=== PATIENT | female | born 1955 | race Caucasian/White ===

== ENCOUNTER 2019-02-15 14:36 | Inpatient (IN) | payer OTHER ==
[~2019-02-15] VITALS: Ht 152.4 cm; Wt 78.5 kg
--- NOTE | 2019-02-15 02:05 | NUR ---
Vitals taken, no distress noted. Addendum: 02/16/19 at 0223 by Wilberto Blount RN Wrong time; correct time is 200402/15/2019.
[2019-02-15 14:37] VITALS: BP 189/97
--- NOTE | 2019-02-15 14:37 | NUR ---
PT BIBA FOR HYPERGLYCEMIA AND HYPERTENSION. PER EMS PT WAS AT PCP FOR VISIT DUE TO ABD PAIN/LT FLANK PAIN X2 DAYS. BS 517 AND BP 201/128. BS UPON ARRIVAL WAS 523. PT REPORTS DRY MOUTH AND FREQUENT URINATION. PT AAOX4, COOPERATIVE. VSS. ER MD TO SEE PT. MEDHX:CVA, HTN, DM, HLD
[2019-02-15] MEDS ORDERED: NACL 0.9% 500 ML IV SCH (14:51)
[2019-02-15] MEDS ORDERED: hydrALAZINE 20 MG/ML VIAL IVP ONE (14:55)
--- NOTE | 2019-02-15 14:58 | NUR ---
EKG PERFORMED AT BEDSIDE
[2019-02-15] MEDS ORDERED: CETI-32 PO (15:00)
[2019-02-15] MEDS ORDERED: AMLO10TA PO (15:00)
[2019-02-15] MEDS ORDERED: ASPI-1205 PO (15:00)
[2019-02-15] MEDS ORDERED: METO25TA PO (15:00)
[2019-02-15] MEDS ORDERED: LOSA100T51 PO (15:00)
[2019-02-15] MEDS ORDERED: BACL10TA4 PO (15:00)
[2019-02-15] MEDS ORDERED: FLONAS NS ×2 (15:00)
[2019-02-15] MEDS ORDERED: METF500T PO (15:00)
[2019-02-15] MEDS ORDERED: MECL-272 PO (15:00)
[2019-02-15] MEDS ORDERED: GUAI-791 PO (15:00)
[2019-02-15] MEDS ORDERED: FLUO10CA21 PO (15:00)
[2019-02-15] MEDS ORDERED: HYDR-5092 PO (15:00)
[2019-02-15] MEDS ORDERED: OMEP20TC10 PO (15:00)
[2019-02-15] MEDS ORDERED: GABA300C PO (15:00)
[2019-02-15] MEDS ORDERED: GEMF600T5 PO (15:00)
[2019-02-15 15:16] LABS: BASOPHILS % (AUTO) 0.7 % (0.0-2.0); EOSINOPHILS # (AUTO) 0.3 K/uL (0-0.4); EOSINOPHILS % (AUTO) 4.4 % (0.0-4.0); HEMATOCRIT 35.5 % (36-48); HEMOGLOBIN 11.6 g/dL (12.0-16.0); LYMPHOCYTES # (AUTO) 1.2 K/uL (2.5-16.5); LYMPHOCYTES % (AUTO) 16.8 % (20.5-51.1); MEAN CORPUSCULAR HEMOGLOBIN 26 pg (27-31); MEAN CORPUSCULAR HGB CONC 33 g/dL (33-37); MEAN CORPUSCULAR VOLUME 79.3 fL (80-94); MONOCYTES # (AUTO) 0.3 K/uL (0.8-1.0); MONOCYTES % (AUTO) 4.6 % (1.7-9.3); NEUTROPHILS # (AUTO) 5.2 K/uL (1.8-7.7); NEUTROPHILS % (AUTO) 73.5 % (42.2-75.2); PLATELET COUNT (AUTO) 193 K/uL (140-450); RED BLOOD CELL COUNT(AUTO) 4.47 MIL/uL (4.20-5.40); RED CELL DISTRIBUTION WIDTH 15.1 % (11.6-13.7); WHITE BLOOD COUNT (AUTO) 7.1 K/uL (4.8-10.8)
[2019-02-15] MEDS ORDERED: KETOROLAC 30 MG/ML VIAL IVP ONE (15:20)
[2019-02-15] MEDS ORDERED: ONDANSETRON 4 MG/2 ML VIAL IVP ONE (15:20)
--- NOTE | 2019-02-15 15:20 | NUR ---
resource technician at bedside.
[2019-02-15 15:31] LABS: PROTHROMBIN TIME 9.5 secs (10.8-13.4)
[2019-02-15 15:53] LABS: APPEARANCE,URINE CLEAR (CLEAR); BILIRUBIN,URINE NEGATIVE (NEGATIVE); BLOOD, URINE NEGATIVE (NEGATIVE); COLOR,URINE YELLOW (YELLOW); LEUKOCYTE ESTERASE ,URINE NEGATIVE (NEGATIVE); NITRITE, URINE NEGATIVE (NEGATIVE); UGLUCOSE 3+ (NEGATIVE)
[2019-02-15 16:00] LABS: ALBUMIN 3.3 g/dL (3.4-5.0); ANION GAP 20.4 (8-16); CARBON DIOXIDE 16.8 mmol/L (21-32); CREATININE 1.5 mg/dL (0.6-1.3); POTASSIUM 4.2 mmol/L (3.5-5.1); TOTAL BILIRUBIN 0.4 mg/dL (0.0-1.0)
[2019-02-15] MEDS ORDERED: NACL 0.9% 1,000 ML IV ONE (16:05)
--- NOTE | 2019-02-15 16:32 | NUR ---
PT RESTING IN BED, SISTER IS AT BEDSIDE. PT REPORTS THAT SHE IS "FEELING BETTER", BP IS CURRENTLY 145/67. PT STATES SHE FEELS WARM, CURRENT TEMP 98.3 ORAL. PT STILL HAS DRY MOUTH, AND FREQUENT URINATION, PT PROVIDED WITH BEDPAN AT THIS TIME. PT TOLERTED NS BOLUS, LUNG SOUNDS CLEAR, NO EDEMA PRESENT.
[2019-02-15] MEDS ORDERED: INSULIN REGULAR, HUMAN 100 UNIT/ML VIAL IVP ONE (16:45)
[2019-02-15] MEDS ORDERED: guaiFENesin 600 MG TABER PO PRN (17:30)
[2019-02-15] MEDS ORDERED: IPRATROPIUM 0.02% 0.5 MG/2.5 ML NEBU INH PRN (17:30)
[2019-02-15] MEDS ORDERED: MORPHINE SULFATE 2 MG/ML SYR IVP PRN (17:30)
[2019-02-15] MEDS ORDERED: ZOLPIDEM 5 MG TAB PO PRN (17:30)
[2019-02-15] MEDS ORDERED: POTASSIUM CHLORIDE 40 MEQ, LIDOCAINE 1% 25 MG in NACL 0.9% 250 ML IV PRN (17:30)
[2019-02-15] MEDS ORDERED: SODIUM PHOSPHATE 118 ML ENEM RC PRN (17:30)
[2019-02-15] MEDS ORDERED: FLUTICASONE NASAL 50 MCG/ACTUATION 16 GM BTL NS PRN (17:30)
[2019-02-15] MEDS ORDERED: MECLIZINE 25 MG TAB PO PRN (17:30)
[2019-02-15] MEDS ORDERED: LORazepam 2 MG/ML VIAL IVP PRN (17:30)
[2019-02-15] MEDS ORDERED: ALBUTEROL 0.083% 2.5 MG/3 ML NEBU INH PRN (17:30)
[2019-02-15] MEDS ORDERED: DOCUSATE SODIUM 250 MG GELCAP PO PRN (17:30)
[2019-02-15] MEDS ORDERED: HYDROcodone/APAP 10/325 MG 1 TAB TAB PO PRN (17:30)
[2019-02-15] MEDS ORDERED: cloNIDine 0.1 MG TAB PO PRN (17:30)
[2019-02-15] MEDS ORDERED: MAGNESIUM OXIDE 400 MG TAB PO PRN (17:30)
[2019-02-15] MEDS ORDERED: MAG SULF 2000 MG/WATER PREMIX 50 ML IV PRN (17:30)
[2019-02-15] MEDS ORDERED: DEXTROSE 50% 50 ML SYR IVP PRN (17:30)
[2019-02-15] MEDS ORDERED: guaiFENesin DM 200/20 MG-10 ML 10 ML UDC PO PRN (17:30)
[2019-02-15] MEDS ORDERED: diphenhydrAMINE 50 MG/ML VIAL IVP PRN (17:30)
[2019-02-15] MEDS ORDERED: ALUMINUM HYD/MAG/SIMETHICONE 30 ML UDC PO PRN (17:30)
[2019-02-15] MEDS ORDERED: BISACODYL 10 MG SUPP RC PRN (17:30)
[2019-02-15] MEDS ORDERED: POTASSIUM CHLORIDE 10 MEQ TABER PO PRN (17:30)
[2019-02-15] MEDS ORDERED: ACETAMINOPHEN 650 MG SUPP RC PRN (17:30)
[2019-02-15] MEDS ORDERED: hydrALAZINE 20 MG/ML VIAL IVP PRN (17:35)
[2019-02-15] MEDS ORDERED: MORPHINE SULFATE 4 MG/ML SYR IVP PRN (17:40)
--- NOTE | 2019-02-15 18:26 | NUR ---
Patient arrived in unit via gurney, assisted by two DEVOPS SOLUTIONS ARCHITECT's; patient A/Ox4, able to make needs known, Macedonian speaking. Patient able to ambulate from gurney to bed with cane. Introduced self, updated board, oriented patient to room and hospital environment. Chief complaint of blurry vision, abdominal pain and dry mouth for 1 week; DX is High Blood Sugar. No SOB or distress noted, on room air. IV site on left antecubital, 20 gauge, saline locked. Skin intact. Bed in the lowest position, call light within reach. Initial assessment done. Will continue to monitor.
--- NOTE | 2019-02-15 18:40 | NUR ---
Patient will be admitted to [facility] [place] [facility]. Admited to TELE VIA GURNEY W/ VSS. Will go to room 112B. Belongings list completed. Report to MOHSEN BAUGH.
[2019-02-15 19:00] VITALS: BP 109/73
--- NOTE | 2019-02-15 19:01 | NUR ---
RECEIVED CALL FROM LAB REGARDING CRITICAL LAB VALUE FOR LACTIC ACID OF 2.6. WILL ENDORSE TO [employer] ASSOCIATE NURSEKIM
[2019-02-15] MEDS: NACL 0.9% 1,000 ML IV SCH (19:47)
[2019-02-15] MEDS: BLOOD GLUCOSE MONITORING 1 DEV DEV FS SCH (20:04)
--- NOTE | 2019-02-15 20:05 | NUR ---
Vitals taken, no SOB or distress noted.
[2019-02-15] MEDS: INSULIN LANTUS 100 UNITS/ML 10 ML VIAL SUBQ SCH (20:09)
[2019-02-15] MEDS: INSULIN LISPRO SLIDING SCALE 100 UNITS/ML VIAL SUBQ PRN (20:10)
[2019-02-15] MEDS: BACLOFEN 10 MG TAB PO SCH (20:12)
[2019-02-15] MEDS: METOPROLOL 50 MG TAB PO SCH (20:13)
--- NOTE | 2019-02-15 21:10 | NUR ---
Due meds given, tolerated well.
--- NOTE | 2019-02-15 23:30 | NUR ---
Vitals taken, no distress noted; patient asleep on left lateral side, visible chest rise and fall noted.
[2019-02-16] VITALS: BP 112/66
[2019-02-16] MEDS: ACETAMINOPHEN 325 MG TAB PO PRN ×3 (01:11→23:24)
--- NOTE | 2019-02-16 01:45 | NUR ---
Checks made; patient sleeping comfortably.
[2019-02-16 04:00] VITALS: BP 117/80
--- NOTE | 2019-02-16 04:20 | NUR ---
Vitals taken, no distress noted.
[2019-02-16] MEDS: NACL 0.9% 1,000 ML IV SCH ×3 (04:47→23:37)
--- NOTE | 2019-02-16 06:00 | NUR ---
Patients vitals stable; all due meds given, will be endorsed to AM shift RN for continuity of care.
[2019-02-16] MEDS: BLOOD GLUCOSE MONITORING 1 DEV DEV FS SCH ×4 (06:01→23:15)
[2019-02-16] MEDS: INSULIN LISPRO SLIDING SCALE 100 UNITS/ML VIAL SUBQ PRN ×4 (06:03→23:34)
[2019-02-16] MEDS: GEMFIBROZIL 600 MG TAB PO SCH ×2 (06:27→16:36)
[2019-02-16 07:48] LABS: BASOPHILS # (AUTO) 0.1 K/uL (0.00-0.22); EOSINOPHILS # (AUTO) 0.6 K/uL (0-0.4); EOSINOPHILS % (AUTO) 7.7 % (0.0-4.0); HEMATOCRIT 33.6 % (36-48); HEMOGLOBIN 11.2 g/dL (12.0-16.0); LYMPHOCYTES # (AUTO) 1.6 K/uL (2.5-16.5); MEAN CORPUSCULAR HEMOGLOBIN 26 pg (27-31); MEAN CORPUSCULAR HGB CONC 33 g/dL (33-37); MONOCYTES # (AUTO) 0.4 K/uL (0.8-1.0); MONOCYTES % (AUTO) 5.1 % (1.7-9.3); NEUTROPHILS # (AUTO) 5.2 K/uL (1.8-7.7); NEUTROPHILS % (AUTO) 66.2 % (42.2-75.2); PLATELET COUNT (AUTO) 207 K/uL (140-450); RED BLOOD CELL COUNT(AUTO) 4.25 MIL/uL (4.20-5.40); RED CELL DISTRIBUTION WIDTH 15.2 % (11.6-13.7); WHITE BLOOD COUNT (AUTO) 7.8 K/uL (4.8-10.8)
--- NOTE | 2019-02-16 07:54 | NUR ---
RECEIVED BED SIDE REPORT FROM VISUAL EDUCATION TEACHER RN. PT A/O X4, HAITIAN SPEAKING. LEFT AC 20G RUNNIING NS AT 100CC/HR. VS STABLE. PT COMPLAINS OF 7/10 BAUGH AND NAUSEA, WILL GIVE PER MD ORDER. SKIN INTACT. CANE AT BEDSIDE. ON RA IN NO RESP DISTRESS. WILL RECHECK SUGAR AT 1100. WILL CONTINUE TO MONITOR.
[2019-02-16 07:55] LABS: ANION GAP 12.4 (8-16); CREATININE 1.1 mg/dL (0.6-1.3); POTASSIUM 3.4 mmol/L (3.5-5.1)
--- NOTE | 2019-02-16 08:08 | NUR ---
PATIENT HAS BEEN SCREENED AND CATEGORIZED MODERATE NUTRITION RISK. PATIENT WILL BE SEEN WITHIN 3-5 DAYS OF ADMISSION. 02/18/19[address]
[2019-02-16] MEDS: ASPIRIN 325 MG TAB PO SCH (08:16)
[2019-02-16] MEDS: ONDANSETRON 4 MG/2 ML VIAL IVP PRN (08:17)
[2019-02-16] MEDS: GABAPENTIN 300 MG CAP PO SCH (08:17)
[2019-02-16] MEDS: FLUoxetine 20 MG CAP PO SCH (08:17)
[2019-02-16] MEDS: amLODIPine 5 MG TAB PO SCH (08:18)
[2019-02-16] MEDS: METOPROLOL 50 MG TAB PO SCH ×2 (08:18→23:27)
[2019-02-16] MEDS: INSULIN LANTUS 100 UNITS/ML 10 ML VIAL SUBQ SCH (08:23)
[2019-02-16] MEDS: ENOXAPARIN 30 MG/0.3 ML SYR SUBQ SCH (08:24)
--- NOTE | 2019-02-16 09:23 | NUR ---
PT DENIES NAUSEA AT THIS TIME. ATE BREAKFAST. DENIES BAUGH. WILL CONTINUE TO MONITOR.
[2019-02-16 10:47] VITALS: BP 152/85
--- NOTE | 2019-02-16 14:26 | NUR ---
SPOKE TO . ORDERED MAG SULFAT 4G X1, DIABETIC EDUCATION, INCREASED LANTUS TO 30 UNITS BID STARTING AT 2100 TODAY. WILL INPUT ORDERS PER MD ORDER.
--- NOTE | 2019-02-16 15:14 | NUR ---
PT RESTING COMFORTABLY IN NO SIGNS OF DISTRESS. WILL CONTINUE TO MONITOR.
[2019-02-16] MEDS ORDERED: INSU100S22 SUBQ (15:53)
[2019-02-16] MEDS ORDERED: [UNRECOGNIZED DRUG - CODE] MC (15:53)
[2019-02-16] MEDS ORDERED: BLOO-697 MC (15:53)
[2019-02-16] MEDS ORDERED: [UNRECOGNIZED DRUG - CODE] MC (15:53)
[2019-02-16] MEDS ORDERED: LANC-587 MC (15:53)
[2019-02-16] MEDS ORDERED: HUM SUBQ (15:54)
[2019-02-16] MEDS: MAG SULF 2000 MG/WATER PREMIX 50 ML IV SCH ×2 (16:01→17:00)
--- NOTE | 2019-02-16 16:23 | NUR ---
Post-discharge appointment made at [facility] for February at 10:20am, phone . Pt was informed. Lorie Zelaya, ACSW Ext [phone]
[2019-02-16 17:18] VITALS: BP 132/72
--- NOTE | 2019-02-16 18:03 | NUR ---
SISTER AT BEDSIDE. EDUCATED PT ON HOW TO CHECK BLOOD SUGAR AND HOW TO DRAW UP AND ADMINISTER INSULIN. PT AND SISTER STATED THAT THEY CHECK BLOOD SUGAR AT HOME. PT AND SISTER VERBALIZED UNDERSTANDING. MAG SULFATE STILL RUNNING. WILL CONTINUE TO MONITOR.
--- NOTE | 2019-02-16 18:37 | NUR ---
HUNG 2ND BAG OF MAG SULFATE. WILL CONTINUE TO MONITOR.
--- NOTE | 2019-02-16 19:24 | NUR ---
RECIEVED PT. AAOX4 , NID , IV SITE INTACT AND PATENT , PLAN OF CARE DISCUSSED AND VERBALIZE UNDERSTANDING , AMBULATORY WITH CANE , FOR DISCHARGE DON.IF STABLE ORDERED . BED IN LOW POSITION , SIDERAILS UPX2 , CALL LIGHT WITHIN REACH ,WILL CONT. TO MONITOR.
--- NOTE | 2019-02-16 19:24 | NUR ---
ENDORSED PT TO SALES PORTER RN. PT STABLE.
[2019-02-16 20:00] VITALS: BP 127/72
[2019-02-16] MEDS ORDERED: INSULIN LANTUS 100 UNITS/ML 10 ML VIAL SUBQ SCH ×2 (21:00)
--- NOTE | 2019-02-16 22:00 | NUR ---
MADE ROUNDS , THE ON GOING IV MEDS CONSUMED AND TERMINATED IVF ORDERED - PUT ON SALINE LOCK. NO COMPLAIN MADE AT THIS TIME , CALL LIGHT WITHIN REACH .
[2019-02-16] MEDS: BACLOFEN 10 MG TAB PO SCH (23:16)
--- NOTE | 2019-02-16 23:20 | NUR ---
MADE ROUNDS , C/O BAUGH - V/S WNL - WILL MEDICATE WITH TYLENOL ORDERED . CALL LIGHT WITH REACH , WILL CONT. TO MONITOR. VOIDED FREELY PER BATHROOM. Addendum: 02/17/19 at 0054 by Amanda Castelan RN PT SAID SHE HAS WATERY STOOL 2X - WILL CONT. TO MONITOR.
--- NOTE | 2019-02-17 | NUR ---
MADE ROUNDS , COMPLAIN MADE AT THIS TIME , WILL CONT. THE PROGRESS OF WATERY STOOL
[2019-02-17 01:06] VITALS: BP 120/68
--- NOTE | 2019-02-17 02:00 | NUR ---
MADE ROUNDS , PT SLEEPING.
[2019-02-17 04:00] VITALS: BP 90/60
--- NOTE | 2019-02-17 04:00 | NUR ---
NO PROGRESS OF LBM , BUT PT BP IS 90/60 , CR 54 BY TELE - NO COMPLAIN MADE AT THIS TIME , O2 SAT 965- NID WILL CONT TO MONITOR , CALL LIGHT WITHIN REACH.
--- NOTE | 2019-02-17 06:00 | NUR ---
BP RE CHECKED 88/57 - NO COMPLAIN MADE AT THIS TIME , WILL CONT. TO MONITOR , CALL LIGHT WITHIN REACH.
[2019-02-17] MEDS: BLOOD GLUCOSE MONITORING 1 DEV DEV FS SCH ×2 (07:03→11:12)
[2019-02-17] MEDS: INSULIN LISPRO SLIDING SCALE 100 UNITS/ML VIAL SUBQ PRN ×2 (07:05→12:17)
--- NOTE | 2019-02-17 07:35 | NUR ---
BP RE CHECKED 100/70 .COMPLAINING OF LIGHT HEADEDNESS - INFROMED DR SOTO ABOUT PT'S CONDITION -STILL WITH SALINE LOCK - ENDORSED TO AM SHIFT NURSE FOR CONTINUITY OF CARE. Addendum: 02/17/19 at 0804 by Amanda Castelan RN ENDORSED TO AM SHIFT NURSE THAT I PAGED THE DR. SOTO ABOUT PT'S CONDITION.
--- NOTE | 2019-02-17 07:36 | NUR ---
RECEIVED BED SIDE REPORT FROM PRINT TRAFFIC MANAGER RN FOR CONTINUITY OF CARE. PT AO X4, CAMBODIAN SPEAKING. LEFT AC 20G, INTACT, ASYMPTOMATIC, AND SALINE LOCKED. PT COMPLAINS OF DIZZINESS, WILL ASSESS AND MEDICATE IF NEEDED. SKIN INTACT. CANE AT BEDSIDE. ON RA WITH NO SIGN OF SOB OR DISTRESS NOTED. UPDATED BOARD. VERBALIZED PLAN OF CARE WITH PATIENT. SHE VERBALIZED UNDERSTANDING. PRINT TRAFFIC MANAGER RN NIMESH PAGED DR. SOTO AND INFORMED HIM OF PATIENT'S LOW BP, WAITING FOR HIS CALL BACK. SAFETY PRECAUTIONS IN PLACE, CALL LIGHT WITHIN REACH. WILL CONTINUE TO MONITOR.
[2019-02-17] MEDS: GEMFIBROZIL 600 MG TAB PO SCH (07:56)
[2019-02-17 08:00] VITALS: BP 115/61
--- NOTE | 2019-02-17 08:15 | NUR ---
UPDATED DR. SOTO WITH PATIENT'S NEW BP, HE STATED TAKE PATIENT'S BP AGAIN, IF SYSTOLIC >100, PATIENT CAN BE DISCHARGED HOME. HAVE PT FOLLOW UP WITH PCP ABOUT DIABETES MEDICATIONS AND FOLLOW PRESCRIBED MEDICATIONS DIRECTED. PASSED INFORMATION ALONG TO PATIENT, SHE VERBALIZED UNDERSTANDING.
[2019-02-17 08:27] LABS: BASOPHILS # (AUTO) 0.1 K/uL (0.00-0.22); BASOPHILS % (AUTO) 0.8 % (0.0-2.0); EOSINOPHILS # (AUTO) 0.6 K/uL (0-0.4); EOSINOPHILS % (AUTO) 8.8 % (0.0-4.0); HEMATOCRIT 35.8 % (36-48); HEMOGLOBIN 11.8 g/dL (12.0-16.0); LYMPHOCYTES # (AUTO) 1.9 K/uL (2.5-16.5); LYMPHOCYTES % (AUTO) 25.6 % (20.5-51.1); MEAN CORPUSCULAR HEMOGLOBIN 26 pg (27-31); MEAN CORPUSCULAR HGB CONC 33 g/dL (33-37); MEAN CORPUSCULAR VOLUME 79.4 fL (80-94); MONOCYTES # (AUTO) 0.4 K/uL (0.8-1.0); MONOCYTES % (AUTO) 5.8 % (1.7-9.3); NEUTROPHILS # (AUTO) 4.3 K/uL (1.8-7.7); PLATELET COUNT (AUTO) 216 K/uL (140-450); RED BLOOD CELL COUNT(AUTO) 4.51 MIL/uL (4.20-5.40); RED CELL DISTRIBUTION WIDTH 15.2 % (11.6-13.7); WHITE BLOOD COUNT (AUTO) 7.3 K/uL (4.8-10.8)
[2019-02-17] MEDS: GABAPENTIN 300 MG CAP PO SCH (08:44)
[2019-02-17] MEDS: FLUoxetine 20 MG CAP PO SCH (08:44)
[2019-02-17] MEDS: ASPIRIN 325 MG TAB PO SCH (08:44)
[2019-02-17] MEDS: ENOXAPARIN 30 MG/0.3 ML SYR SUBQ SCH (08:46)
[2019-02-17] MEDS: ACETAMINOPHEN 325 MG TAB PO PRN (08:48)
--- NOTE | 2019-02-17 08:48 | NUR ---
PT C/O HEADACHE, PRN PAIN MEDICATION GIVEN. NEW BP 114/69 HR 66. NO OTHER C/O AT THIS TIME. WILL CONTINUE TO MONITOR PATIENT.
[2019-02-17] MEDS: METOPROLOL 50 MG TAB PO SCH (08:51)
[2019-02-17 08:55] VITALS: BP 114/69
[2019-02-17] MEDS: amLODIPine 5 MG TAB PO SCH (09:18)
--- NOTE | 2019-02-17 09:18 | NUR ---
PT AMBULATED FROM BED TO BATHROOM WITH CANE ON STEADY GAIT. PT PERFORMED AM CARE. NO DIZZINESS AT THIS TIME. ORDERED MEDICATION GIVEN. PATIENT TOLERATING IT WELL. NO COMPLAINTS AT THIS TIME. WILL CONTINUE TO MONITOR PATIENT.
[2019-02-17] MEDS: NACL 0.9% 1,000 ML IV SCH (09:37)
[2019-02-17 10:07] LABS: ANION GAP 14.1 (8-16); CARBON DIOXIDE 22.6 mmol/L (21-32); CREATININE 1.2 mg/dL (0.6-1.3); POTASSIUM 3.7 mmol/L (3.5-5.1)
[2019-02-17] MEDS: ONDANSETRON 4 MG/2 ML VIAL IVP PRN (11:13)
[2019-02-17 12:00] VITALS: BP 95/46
--- NOTE | 2019-02-17 12:18 | NUR ---
BLOOD GLUCOSE 170, COVERAGE GIVEN. PATIENT TOLERATED IT WELL. PT STILL C/O OF NAUSEA, INFORMED HER ABOUT NEXT SCHEDULED MEDICATIONS AND EDUCATED HER. SHE VERBALIZED UNDERSTANDING. HAT FINISHING MATERIALS PREPARER JOSELIN IN TO SPEAK WITH THE PATIENT ABOUT FOLLOW UP SERVICES. SAFETY PRECAUTIONS IN PLACE, CALL LIGHT WITHIN REACH, WILL CONTINUE TO MONITOR PATIENT.
[2019-02-17 12:45] VITALS: BP 110/60
--- NOTE | 2019-02-17 14:12 | NUR ---
SISTER AT BEDSIDE, PATIENT C/O DIZZINESS, OFFERED ANTIVERT, PATIENT ACCEPTED. PRN ANTIVERT GIVEN. PATIENT TOLERATED IT WELL. PATIENT AGREEABLE TO GOING FORWARD WITH DISCHARGE PLANNING. WILL CONTINUE TO MONITOR PATIENT.
--- NOTE | 2019-02-17 14:30 | NUR ---
PATIENT DISCHARGE EDUCATION AND INSTRUCTIONS GIVEN TO PATIENT AND HER SISTER LARA ARGUETA AT BEDSIDE. THEY VERBALIZED UNDERSTANDING ABOUT MD FOLLOW UP WITH APPOINTMENT ON 02/22/19, NEW PRESCRIPTION OF INSULIN, USE OF INSULIN, AND S/S OF HYPO AND HYPERGLYCEMIA, AND TO TAKE AND DOCUMENT BP RESULTS. IV REMOVED, IV CATHETER INTACT, MINIMAL BLEEDING NOTED. ID BANDS CUT, TELE MONITOR REMOVED. PATIENT AMBULATED TO BATHROOM ON STEADY GAIT, VOIDED, DENIED DIZZINESS OR PAIN. PATIENT WILL CHANGE INTO HER OWN CLOTHING AND GET READY TO BE DISCHARGED HOME. WILL CONTINUE TO MONITOR PATIENT.
--- NOTE | 2019-02-17 14:50 | NUR ---
PATIENT WHEELED OFF FLOOR WITH RN TO BE DISCHARGE HOME. PATIENT TOOK ALL HER BELONGINGS WITH HER. PATIENT IN STABLE CONDITION.
== END 2019-02-17 14:50 | disposition home or self-care (01) | DRG 420 ==
LOC: MED 14:36 → MTU 17:41
PROVIDERS: ADMIT Internal Medicine Pulmonary Disease; ATTEND Internal Medicine Pulmonary Disease
DX: E11.65 Type 2 diabetes mellitus with hyperglycemia (principal); E87.2 Acidosis; Z79.84 Long term (current) use of oral hypoglycemic drugs; E86.0 Dehydration; E87.6 Hypokalemia; I10 Essential (primary) hypertension; J30.2 Other seasonal allergic rhinitis; I16.0 Hypertensive urgency; T38.3X5A Adverse effect of insulin and oral hypoglycemic [antidiabetic] drugs, initial encounter; Y92.89 Other specified places as the place of occurrence of the external cause; Z79.4 Long term (current) use of insulin; Z86.73 Personal history of transient ischemic attack (TIA), and cerebral infarction without residual deficits; Z90.710 Acquired absence of both cervix and uterus
CPT/HCPCS: 36415; 36600; 71045; 80048; 80053; 81003; 82009; 82803; 82948; 83605; 83735; 83880; 84484; 85025; 85610; 85730; 87040; 87081; 87086; 93005; 96361; 96374; 96375; 99285; J0360; J1650; J1815; J1885; J2405; J3475; J7030; J8597; Q0092